=== PATIENT | female | born 1975 | race African-American/Black ===

== ENCOUNTER 2022-02-07 08:24 | Emergency (ER) | payer MEDICAID ==
[~2022-02-07] VITALS: Ht 170.2 cm; Wt 118.0 kg
[~2022-02-07 08:24] MED LIST: CEPH500T MT; SULF1TAB48 MT
[2022-02-07 09:31] LABS: CLARITY URINE CLOUDY (CLEAR); COLOR URINE YELLOW (YELLOW); KETONES URINE NEGATIVE (NEGATIVE); LEUKOCYTE ESTERASE URINE 2+ (NEGATIVE); NITRITE URINE NEGATIVE (NEGATIVE); OCCULT BLOOD URINE NEGATIVE (NEGATIVE); PROTEIN URINE TRACE (NEGATIVE); SPECIFIC GRAVITY URINE 1.019 (1.005-1.030); UROBILINOGEN URINE 0.2 E.U./dL (0.2-1.0)
[2022-02-07] MEDS ORDERED: NITR-87 MT (10:40)
[2022-02-07 11:27] VITALS: BP 126/75
== END 2022-02-07 11:30 | disposition home or self-care (01) ==
LOC: ER 08:24
DX: N39.0 Urinary tract infection, site not specified (principal); L29.9 Pruritus, unspecified; J45.909 Unspecified asthma, uncomplicated; Z11.3 Encounter for screening for infections with a predominantly sexual mode of transmission
CPT/HCPCS: 81003; 81025; 87210; 99283; 99284

== ENCOUNTER 2023-03-23 13:02 | Emergency (ER) | payer MEDICAID ==
[~2023-03-23] VITALS: Ht 172.7 cm; Wt 99.0 kg
[~2023-03-23 13:02] MED LIST changes: +NITR-87 MT
[2023-03-23 13:13] VITALS: BP 165/82; PULSE 94; RESP 20; TEMP 98.2; O2SAT 99
[2023-03-23 14:15] LABS: CLARITY URINE CLOUDY (CLEAR); COLOR URINE DARK YELLOW (YELLOW); GLUCOSE URINE NEGATIVE (NEGATIVE); KETONES URINE TRACE (NEGATIVE); LEUKOCYTE ESTERASE URINE 1+ (NEGATIVE); NITRITE URINE NEGATIVE (NEGATIVE); OCCULT BLOOD URINE 3+ (NEGATIVE); PROTEIN URINE 1+ (NEGATIVE); SPECIFIC GRAVITY URINE 1.029 (1.005-1.030)
[2023-03-23 14:50] LABS: RBC URINE TNTC /hpf (0-2); SQUAMOUS EPITHELIAL CELL URINE 2+ /lpf (RARE/1+)
[2023-03-23 14:53] LABS: BACTERIA URINE TRACE; MUCUS URINE 1+ /lpf (< = 2+); WBC URINE 0-2 /hpf (0-2)
[2023-03-23] MEDS ORDERED: PHEN95TA44 MT (15:20)
== END 2023-03-23 16:48 | disposition home or self-care (01) ==
LOC: ER 13:02
DX: N39.0 Urinary tract infection, site not specified (principal); J45.909 Unspecified asthma, uncomplicated
CPT/HCPCS: 81003; 81025; 87210; 99284

== ENCOUNTER 2024-02-22 11:46 | Emergency (ER) | payer MEDICAID ==
[~2024-02-22] VITALS: Ht 170.2 cm; Wt 108.9 kg
[~2024-02-22 11:46] MED LIST changes: +PHEN95TA44 MT
[2024-02-22 11:56] VITALS: TEMP 98.3; O2SAT 99
[2024-02-22 12:15] VITALS: BP 179/103; PULSE 84; RESP 16
[2024-02-22] MEDS: IBUPROFEN 600MG TABLET PO ONE (12:15)
[2024-02-22 12:30] LABS: CHLORIDE 107 mEq/L (98-107); POTASSIUM 3.8 mEq/L (3.5-5.1); SODIUM 139 mEq/L (136-145)
[2024-02-22 12:31] LABS: CALCIUM 9.4 mg/dL (8.7-10.4); CARBON DIOXIDE 28 mEq/L (21-32)
[2024-02-22 12:36] LABS: CREATININE 0.8 mg/dL (0.6-1.0); GLUCOSE 117 mg/dL (70-105); UREA NITROGEN BLOOD 12 mg/dL (9-23)
[2024-02-22 12:43] LABS: HCG SCREEN NEGATIVE
[2024-02-22 12:55] LABS: BASOPHILS % 0.6 % (0.0-2.0); EOSINOPHILS % 1.9 % (0.0-5.0); HEMATOCRIT. 32.8 % (36.0-48.0); HEMOGLOBIN. 9.5 g/dL (12.0-16.0); MEAN CORPUSCULAR HEMOGLOBIN 18.1 pg (28.0-32.0); MEAN CORPUSCULAR VOLUME 62.4 fL (81.0-99.0); MEAN PLATELET VOLUME 8.8 fl (7.4-10.4); MONOCYTES % 9.1 % (2.0-8.0); NEUTROPHILS % 49.4 % (40.0-76.0); PLATELET 429 x1000/uL (130-400); RED BLOOD CELL COUNT 5.26 mill/uL (4.2-5.4); RED CELL DISTRIBUTION WIDTH 22.6 % (11.6-14.6); WHITE BLOOD COUNT 5.2 x1000/uL (4.5-11.0)
[2024-02-22 13:00] LABS: ADD RBC MORPHOLOGY YES; DIFFERENTIAL COMMENT 1
[2024-02-22 13:07] LABS: TROPONIN I HIGH SENSITIVITY < 4 ng/L (3.0-34)
[2024-02-22 13:28] LABS: HYPOCHROMASIA 1+; PLATELET ESTIMATE SLIGHTLY INCREASED
[2024-02-22 13:29] LABS: ANISOCYTOSIS 1+
[2024-02-22 13:30] LABS: MICROCYTOSIS 4+
[2024-02-22] MEDS ORDERED: IBUP-2029 MT (13:32)
== END 2024-02-22 14:15 | disposition home or self-care (01) ==
LOC: ER 11:46
DX: M94.0 Chondrocostal junction syndrome [Tietze] (principal); J45.909 Unspecified asthma, uncomplicated
CPT/HCPCS: 36415; 71045; 80048; 83880; 84484; 84703; 85025; 93005; 99285

== ENCOUNTER 2024-09-27 17:56 | Emergency (ER) | payer SELFPAY ==
[~2024-09-27] VITALS: Ht 170.2 cm; Wt 122.5 kg
[~2024-09-27 17:56] MED LIST changes: +IBUP-2029 MT
[2024-09-27 18:00] VITALS: TEMP 36.8; O2SAT 98
[2024-09-27 21:12] VITALS: BP 171/96; PULSE 89; RESP 16
[2024-09-27] MEDS: KETOROLAC 30MG/ML VIAL IM ONE (21:12)
[2024-09-27 21:16] LABS: CLARITY URINE CLOUDY (CLEAR); COLOR URINE YELLOW (YELLOW); GLUCOSE URINE 3+ (NEGATIVE); KETONES URINE 1+ (NEGATIVE); LEUKOCYTE ESTERASE URINE NEGATIVE (NEGATIVE); NITRITE URINE NEGATIVE (NEGATIVE); OCCULT BLOOD URINE NEGATIVE (NEGATIVE); PROTEIN URINE NEGATIVE (NEGATIVE); SPECIFIC GRAVITY URINE 1.051 (1.005-1.030); UROBILINOGEN URINE 0.2 E.U./dL (0.2-1.0)
[2024-09-27 21:27] LABS: BASOPHILS % 0.8 % (0.0-2.0); EOSINOPHILS % 1.3 % (0.0-5.0); HEMATOCRIT. 34.9 % (36.0-48.0); HEMOGLOBIN. 10.8 g/dL (12.0-16.0); MEAN CORPUSCULAR HEMOGLOBIN 20.6 pg (28.0-32.0); MEAN CORPUSCULAR VOLUME 66.4 fL (81.0-99.0); MEAN PLATELET VOLUME 8.9 fl (7.4-10.4); MONOCYTES % 9.2 % (2.0-8.0); NEUTROPHILS % 48.7 % (40.0-76.0); PLATELET 369 x1000/uL (130-400); RED BLOOD CELL COUNT 5.26 mill/uL (4.2-5.4); RED CELL DISTRIBUTION WIDTH 20.9 % (11.6-14.6); WHITE BLOOD COUNT 7.1 x1000/uL (4.5-11.0)
[2024-09-27 21:32] LABS: CHLORIDE 101 mEq/L (98-107); DIFFERENTIAL COMMENT 1; POTASSIUM 3.8 mEq/L (3.5-5.1); SODIUM 137 mEq/L (136-145)
[2024-09-27 21:33] LABS: CALCIUM 9.4 mg/dL (8.7-10.4); CARBON DIOXIDE 26 mEq/L (21-32)
[2024-09-27 21:38] LABS: BACTERIA URINE NONE SEEN; RBC URINE NONE SEEN /hpf (0-2); SQUAMOUS EPITHELIAL CELL URINE 1+ /lpf (RARE/1+); WBC URINE 0-2 /hpf (0-2)
[2024-09-27 21:38] LABS: CREATININE 1.1 mg/dL (0.6-1.0); UREA NITROGEN BLOOD 11 mg/dL (9-23)
[2024-09-27 21:40] LABS: ALANINE AMINOTRANSFERASE 27 IU/L (10-49); ALBUMIN 4.4 g/dL (3.2-4.8); ASPARTATE AMINOTRANSFERASE 28 IU/L (<34)
[2024-09-27 21:41] LABS: BILIRUBIN TOTAL 0.3 mg/dL (0.1-1.0); PROTEIN TOTAL 7.3 g/dL (6.0-8.3)
[2024-09-27 21:45] LABS: GLUCOSE 413 mg/dL (70-105)
[2024-09-27] MEDS: SODIUM CHLORIDE 0.9% 1,000 ML IV ONE (22:28)
[2024-09-28] MEDS ORDERED: METF-414 MT (00:02)
== END 2024-09-28 00:19 | disposition home or self-care (01) ==
LOC: ER 17:56
DX: T14.8XXA Other injury of unspecified body region, initial encounter (principal); R73.9 Hyperglycemia, unspecified; J45.909 Unspecified asthma, uncomplicated; Z79.84 Long term (current) use of oral hypoglycemic drugs; Z79.899 Other long term (current) drug therapy; X58.XXXA Exposure to other specified factors, initial encounter; Y93.89 Activity, other specified; Y92.89 Other specified places as the place of occurrence of the external cause; Y99.8 Other external cause status
CPT/HCPCS: 99284; 96360; 71045; 80053; 81003; 81025; 85025; 36415; 96372; 82962; J1885; J7030